=== PATIENT | female | born 1965 | race Caucasian/White ===

== ENCOUNTER 2023-02-15 09:52 | Day surgery (SDC) | payer OTHER, BC ==
[~2023-02-15] VITALS: Ht 152.4 cm; Wt 62.5 kg
[2023-02-15] MEDS ORDERED: HYDR1TAB94 (10:12)
[2023-02-15] MEDS ORDERED: IMITREX25 MG (10:14)
[2023-02-15] MEDS ORDERED: Naltrexone HCl50 MG (10:20)
[2023-02-15] MEDS ORDERED: PROG100 (10:20)
[2023-02-15] MEDS ORDERED: EUTHYROX50 MCG (10:20)
[2023-02-15] MEDS ORDERED: TRIDERM28.4 GM (10:21)
[2023-02-15] MEDS ORDERED: ACET500 (10:22)
[2023-02-15] MEDS ORDERED: L-Lysine500 M1 (10:22)
[2023-02-15 13:15] VITALS: BP 116/80
--- NOTE | 2023-02-15 13:18 | NUR ---
02/15/23 1318 ASHOK LAYNE PT REMOVED HER IV IN EXAM UPON AWAKENING. SITE WNL.
== END 2023-02-15 13:08 | disposition home or self-care (01) ==
LOC: ORSCSDS 09:52
DX: Z12.11 Encounter for screening for malignant neoplasm of colon (principal); K22.11 Ulcer of esophagus with bleeding; Z80.0 Family history of malignant neoplasm of digestive organs; K31.7 Polyp of stomach and duodenum; D12.2 Benign neoplasm of ascending colon; D12.3 Benign neoplasm of transverse colon; K21.9 Gastro-esophageal reflux disease without esophagitis; R10.13 Epigastric pain; Z83.719 Family history of colon polyps, unspecified; E03.9 Hypothyroidism, unspecified; Z79.899 Other long term (current) drug therapy
CPT/HCPCS: 88305; 88342; J2704

== ENCOUNTER → 2023-05-18 | Outpatient (CLI) | payer OTHER, BC ==
[~2023-05-18] MED LIST: ACET500; EUTHYROX50 MCG; HYDR1TAB94; IMITREX25 MG; L-Lysine500 M1; Naltrexone HCl50 MG; PROG100; TRIDERM28.4 GM
== END | disposition home or self-care (01) ==
LOC: LAB SHORT 14:20
DX: R07.9 Chest pain, unspecified (principal)
CPT/HCPCS: 84484